=== PATIENT | female | born 1935 | race Caucasian/White ===

== ENCOUNTER 2019-01-22 21:29 | Inpatient (IN) | payer MEDICARE, OTHER ==
[~2019-01-22] VITALS: Ht 162.6 cm; Wt 56.7 kg
--- NOTE | 2019-01-22 21:40 | NUR ---
PT IS A/OX4, BIB RA909, S/P MECHANICAL FALL. PT REPORTS NO HEAD INJURY/LOC. PT STATES SHE TRIPPED ON A STEP AND FELL ONTO HER L SIDE AND IS CURRENTLY C/O L HIP PAIN. UNABLE TO ASSESS FOR SHORTENING/EXTERNAL ROTATION OF THE EXTREMITY DUE TO PT LYING R LATERAL FOR POSITION OF COMFORT. L HIP PAIN IS PROVOKED UPON MOVEMENT, SHARP IN QUALITY, RADIATES DOWN THE LLE, 10/10, CONSTANT. VSS. SKIN SIGN IS DRY AND WARM. PT DENIES C/P, SOB, N/V/D, DIZZINESS, HEADACHE.
[2019-01-22] MEDS ORDERED: MORPHINE SULFATE 2 MG/1 ML DISP.SYRIN IV ONE (22:30)
[2019-01-22] MEDS ORDERED: ONDANSETRON 4 MG/2 ML VIAL IV ONE (22:30)
[2019-01-22 22:55] LABS: BASOPHILS % (AUTO) 0.5 % (0.0-2.0); EOSINOPHILS % (AUTO) 0.7 % (0.0-7.0); HEMATOCRIT 35.2 % (31.2-41.9); HEMOGLOBIN 11.9 g/dL (10.9-14.3); LYMPHOCYTES # (AUTO) 0.8 K/uL (20.0-40.0); LYMPHOCYTES % (AUTO) 15.9 % (20.5-51.5); MEAN CORPUSCULAR HEMOGLOBIN 30.4 uug (24.7-32.8); MEAN CORPUSCULAR HGB CONC 34 g/dL (32.3-35.6); MEAN CORPUSCULAR VOLUME 90.5 fL (75.5-95.3); MONOCYTES # (AUTO) 0.4 K/uL (2.0-10.0); MONOCYTES % (AUTO) 8.2 % (0.0-11.0); NEUTROPHILS # (AUTO) 3.7 K/uL (1.8-8.9); NEUTROPHILS % (AUTO) 74.7 % (38.5-71.5); PLATELET COUNT (AUTO) 127 K/uL (179-408); RED BLOOD CELL COUNT(AUTO) 3.89 MIL/uL (3.63-4.92)
[2019-01-22 23:07] LABS: CREATININE 0.8 mg/dL (0.6-1.3); POTASSIUM 3.6 mmol/L (3.5-5.1)
[2019-01-22] MEDS ORDERED: MORPHINE SULFATE 4 MG/1 ML DISP.SYRIN ONE (23:11)
[2019-01-22 23:14] LABS: BILIRUBIN,DIRECT 0.1 mg/dL (0.0-0.2); BILIRUBIN,TOTAL 0.4 mg/dL (0.2-1.0)
[2019-01-22] MEDS ORDERED: ONDANSETRON ODT 4 MG TAB.RAPDIS ONE (23:14)
[2019-01-22] MEDS ORDERED: HYDROMORPHONE 1 MG/1 ML DISP.SYRIN ONE (23:43)
[2019-01-22] MEDS ORDERED: HYDROMORPHONE 1 MG/1 ML DISP.SYRIN IV ONE (23:45)
[2019-01-23] MEDS ORDERED: HYDROMORPHONE 1 MG/1 ML DISP.SYRIN ONE ×2 (00:42→01:18)
[2019-01-23] MEDS ORDERED: HYDROMORPHONE 1 MG/1 ML DISP.SYRIN IV ONE ×3 (01:00→03:15)
[2019-01-23] MEDS ORDERED: ONDANSETRON 4 MG/2 ML VIAL IV ONE (03:15)
[2019-01-23] MEDS ORDERED: IV NS 1000 ML 1,000 ML IV ONE (03:15)
[2019-01-23] MEDS ORDERED: ONDANSETRON 4 MG/2 ML VIAL ONE (03:25)
[2019-01-23] MEDS ORDERED: HYDROMORPHONE 2 MG/1 ML DISP.SYRIN ONE (03:25)
[2019-01-23] MEDS ORDERED: ACETAMINOPHEN 325 MG TABLET PO PRN (03:30)
[2019-01-23] MEDS ORDERED: HYDROCODONE/APAP 5-325MG TABLET PO PRN (03:30)
[2019-01-23] MEDS ORDERED: MAGNESIUM HYDROXIDE 30 ML LIQUID UDC PO PRN (03:30)
[2019-01-23] MEDS ORDERED: Z GUARD REMEDY PASTE 57 GM TUBE TOP PRN (03:30)
--- NOTE | 2019-01-23 03:52 | NUR ---
Pt. admitted to TELE 329B, under care of NAKUL ESCAMILLA. Belongs List completed
--- NOTE | 2019-01-23 04:05 | NUR ---
ADMITTING REPORT GIVEN TO JOSEP Brown RN.
--- NOTE | 2019-01-23 04:07 | NUR ---
Pt. admitted to TELE 329B, under care of NAKUL ESCAMILLA. Belongs List completed
[2019-01-23] MEDS ORDERED: ALBU0.63 (04:09)
[2019-01-23] MEDS ORDERED: HYDR-3326 (04:09)
[2019-01-23 05:34] VITALS: BP 129/59
[2019-01-23] MEDS: HYDROMORPHONE 1 MG/1 ML DISP.SYRIN IV PRN ×4 (05:59→20:34)
[2019-01-23] MEDS: IV NS 1000 ML 1,000 ML IV PRN ×2 (06:30→21:33)
--- NOTE | 2019-01-23 06:30 | NUR ---
Received patient from ER. Dx: Left Hip Fracture. no signs of acute distress noted, No complaints of SOB. Daughter is at bedside. Belongings brought with patient, daughter bringing shoes home. Inserted Higgins. IVF running on the right AC. Safety measures given. Patient was oriented to unit and room. Bed is low and locked, call light within reach. Will endorse to next shift
[2019-01-23 07:07] LABS: CARBON DIOXIDE 28 mmol/L (21-32); CHLORIDE 104 mmol/L (98-107); CHOLESTEROL 156 mg/dL (<200); CREATININE 0.8 mg/dL (0.6-1.3); GLUCOSE 148 mg/dL (74-106); HDL CHOLESTEROL 52 mg/dL (40-60); MAGNESIUM 1.7 mg/dL (1.8-2.4); PHOSPHOROUS 3.7 mg/dL (2.5-4.9); POTASSIUM 4.5 mmol/L (3.5-5.1); TRIGLYCERIDES 54 MG/DL (30-150); UREA NITROGEN, BLOOD 12 mg/dL (7-18)
[2019-01-23 08:53] LABS: *BILIRUBIN,URIN NEGATIVE (NEGATIVE); *CLARITY,URINE CLOUDY (CLEAR); *COLOR,URINE YELLOW (YELLOW); *KETONES,URINE NEGATIVE (NEGATIVE); *UROBILINOGEN,URINE 0.2 E.U./dl (NORMAL); LEUKOCYTE ESTERASE ,URINE 1+ (NEGATIVE); NITRITE, URINE POSITIVE (NEGATIVE); UGLUCOSE NEGATIVE (NEGATIVE)
[2019-01-23 08:56] LABS: *BLOOD, URINE TRACE (NEGATIVE)
[2019-01-23 09:06] LABS: RBC,URINE 0-3 /HPF (0-3)
[2019-01-23 09:07] LABS: BACTERIA,URINE MANY /HPF (NONE SEEN); SQUAMOUS EPITHELIAL CELL,UR FEW /HPF (NONE SEEN); WBC,URINE 20-50 /HPF (0-3)
[2019-01-23 12:02] VITALS: BP 135/62
[2019-01-23] MEDS: MAGNESIUM SULFATE/D5W 100 ML IV SCH ×2 (13:18→14:41)
[2019-01-23] MEDS ORDERED: ALBUTEROL SULFATE 2.5 MG/3 ML NEBU NEB PRN (15:45)
[2019-01-23 16:36] VITALS: BP 126/61
--- NOTE | 2019-01-23 18:14 | NUR ---
PATIENT SLEPT THROUGHOUT DAY. PATIENT REPORTING PAIN, PAIN MANAGEMENT PROVIDED. PATIENT SEEN BY DR SMITH AND SCHEDULED FOR SURGERY. MAGNESIUM LEVELS LOW, REPLACEMENT PROVIDED. SAFETY MEASURES PROVIDED.
[2019-01-23 20:31] VITALS: BP 124/65
[2019-01-23] MEDS: SULFAMETH/TRIMETH 800/160 MG TABLET PO SCH ×2 (20:32→20:44)
--- NOTE | 2019-01-23 20:35 | NUR ---
PATIENT AWAKE IN BED. A/O X4. PATIENT C/O PAIN IN LEFT HIP. PATIENT GIVEN DILAUDID 1MG IV PRN PER PRESS CLIPPER. VS WNL. IVF INFUSING WELL TO RIGHT AC. NEURO-VASCULAR CHECKS WNL. BED ALARM ON. CALL LIGHT IN REACH. WILL CONTINUE TO MONITOR AND ASSESS.
[2019-01-24] VITALS (8 sets, daily range): BP systolic 82–105; BP diastolic 39–57
--- NOTE | 2019-01-24 | NUR ---
PATIENT NPO ORDERED FOR SURGERY IN AM.
[2019-01-24] MEDS: HYDROMORPHONE 1 MG/1 ML DISP.SYRIN IV PRN ×3 (00:29→10:14)
[2019-01-24] MEDS: ONDANSETRON 4 MG/2 ML VIAL IV PRN ×2 (00:33→18:57)
--- NOTE | 2019-01-24 04:35 | NUR ---
PATIENT C/O PAIN. GIVEN DILAUDID 1MG IV PER RN. PATIENT REFUSED TO BE REPOSITIONED. IVF INFUSING WELL. F/C INTACT, DRAINING TO GRAVITY. NO RESP. DISTRESS NOTED. CALL LIGHT IN REACH. ALL NEEDS ATTENDED. WILL CONTINUE TO MONITOR AND ASSESS.
--- NOTE | 2019-01-24 07:30 | NUR ---
RECEIVED PATIENT SLEEPING IN BED, NO ACUTE DISTRESS NOTED. IV INTACT AND CHAPMAN DRAINING. BED IN LOWEST POSITION, SIDE RAILS UP X2, CALL LIGHT WITHIN REACH. WILL CONTINUE TO MONITOR.
[2019-01-24] MEDS: SULFAMETH/TRIMETH 800/160 MG TABLET PO SCH ×2 (09:00→21:00)
[2019-01-24] MEDS ORDERED: POLYMYXIN B SULFATE 500,000 UNITS, BACITRACIN 50,000 UNITS, NORMAL SALINE 20 ML MC ONE ×3 (10:15)
[2019-01-24] MEDS ORDERED: CLINDAMYCIN PHOSPHATE 600 MG/4 ML VIAL ONE (11:10)
[2019-01-24] MEDS ORDERED: VASOPRESSIN 20 UNIT/ML VIAL ONE ×2 (11:37→11:42)
[2019-01-24] MEDS ORDERED: SEVOFLURANE 250 ML BOTTLE ONE (11:58)
[2019-01-24] MEDS ORDERED: CEFAZOLIN 1 G VIAL IM ONE (12:42)
[2019-01-24] MEDS ORDERED: IV NORMAL SALINE 1000 ML BAG IV ONE ×2 (12:42)
[2019-01-24] MEDS ORDERED: ONDANSETRON 4 MG/2 ML VIAL IV ONE (12:42)
[2019-01-24] MEDS ORDERED: DEXAMETHASONE SOD PHOSPHATE 4 MG INJ IV ONE (12:42)
[2019-01-24] MEDS ORDERED: POTASSIUM CHLORIDE 20 MEQ in IV D5 1/2 NS 1000 ML 1,000 ML IV PRN (13:15)
[2019-01-24] MEDS ORDERED: FENTANYL CITRATE 100 MCG/2 ML AMPUL ONE (13:26)
[2019-01-24] MEDS ORDERED: ONDANSETRON 4 MG/2 ML VIAL ONE (13:27)
[2019-01-24] MEDS: MORPHINE SULFATE 4 MG/1 ML DISP.SYRIN IV PRN ×4 (14:12→22:02)
--- NOTE | 2019-01-24 18:49 | NUR ---
PATIENT SLEPT THROUGHOUT DAY. PATIENT WENT FOR SURGERY WITH DR. SMITH FOR A LEFT HIP NAILING. NO ACUTE DISTRESS NOTED. PATIENT REPORTING PAIN, PAIN MANAGEMENT PROVIDED. SAFETY MEASURES PROVIDED.
--- NOTE | 2019-01-24 20:00 | NUR ---
pt resting comfortably in bed with family at bedside. pt is a/o x 3, has no complaints at this time. Will continue to monitor.
[2019-01-24] MEDS: CLINDAMYCIN PHOSPHATE IV 900 MG in IV DEXTROSE 5% 100 ML IV SCH (20:37)
--- NOTE | 2019-01-25 | NUR ---
pt resting comfortably, call light within reach. Will continue to monitor.
[2019-01-25] MEDS: MORPHINE SULFATE 4 MG/1 ML DISP.SYRIN IV PRN ×6 (02:32→18:25)
[2019-01-25] MEDS: CLINDAMYCIN PHOSPHATE IV 900 MG in IV DEXTROSE 5% 100 ML IV SCH ×3 (04:00→20:59)
[2019-01-25 04:49] VITALS: BP 96/60
[2019-01-25 06:16] LABS: BASOPHILS % (AUTO) 0.5 % (0.0-2.0); EOSINOPHILS % (AUTO) 0.3 % (0.0-7.0); HEMATOCRIT 30.6 % (31.2-41.9); HEMOGLOBIN 10.2 g/dL (10.9-14.3); LYMPHOCYTES # (AUTO) 0.6 K/uL (20.0-40.0); LYMPHOCYTES % (AUTO) 7.8 % (20.5-51.5); MEAN CORPUSCULAR HEMOGLOBIN 31.3 uug (24.7-32.8); MEAN CORPUSCULAR HGB CONC 33 g/dL (32.3-35.6); MEAN CORPUSCULAR VOLUME 93.7 fL (75.5-95.3); MONOCYTES % (AUTO) 12.4 % (0.0-11.0); NEUTROPHILS # (AUTO) 6.3 K/uL (1.8-8.9); PLATELET COUNT (AUTO) 77 K/uL (179-408); RED BLOOD CELL COUNT(AUTO) 3.27 MIL/uL (3.63-4.92); WHITE BLOOD COUNT (AUTO) 7.9 K/uL (3.8-11.8)
[2019-01-25 06:34] LABS: CREATININE 0.9 mg/dL (0.6-1.3); MAGNESIUM 1.9 mg/dL (1.8-2.4); PHOSPHOROUS 3.2 mg/dL (2.5-4.9); POTASSIUM 5.3 mmol/L (3.5-5.1)
--- NOTE | 2019-01-25 06:48 | NUR ---
Pt resting, Bed in locked position. Pt pain was managed throughout shift. Will endorse to day shift.
--- NOTE | 2019-01-25 07:25 | NUR ---
RECEIVED PATIENT SLEEPING IN BED. NO ACUTE DISTRESS NOTED. BED IN LOWEST POSITION, SIDE RAILS UP X2, CALL LIGHT WITHIN REACH. WILL CONTINUE TO MONITOR.
[2019-01-25] MEDS: SULFAMETH/TRIMETH 800/160 MG TABLET PO SCH ×2 (08:00→20:59)
[2019-01-25] MEDS ORDERED: IV D5 1/2 NS 1000 ML 1,000 ML IV PRN (10:15)
[2019-01-25 10:57] LABS: EOSINOPHILS % (MANUAL) 1 % (0-8); LYMPHOCYTES % (MANUAL) 8 % (20-40); MONOCYTES % (MANUAL) 8 % (2-10); NEUTROPHILS % (MANUAL) 83 % (42-75)
[2019-01-25 12:11] VITALS: BP 105/57
[2019-01-25 16:14] VITALS: BP 101/53
[2019-01-25] MEDS: ONDANSETRON 4 MG/2 ML VIAL IV PRN (18:30)
--- NOTE | 2019-01-25 18:59 | NUR ---
PATIENT SLEPT THROUGHOUT DAY. NO DISTRESS NOTED THROUGHOUT SHIFT. NO ACUTE DISTRESS NOTED. PAIN MANAGEMENT PROVIDED. LEFT HIP DRESSING REINFORCED. SAFETY MEASURES PROVIDED.
[2019-01-25 20:24] VITALS: BP 111/60
--- NOTE | 2019-01-26 01:14 | NUR ---
Received report from Colton GOMES, for continuity of care. Received patient resting comfortably on bed, no signs of acute distress noted. No s/s of pain or SOB. IVF running on the left hand, no s/s of infiltration or infection. Safety measures initiated. Bed is low and locked, call light within reach. Will continue to monitor.
[2019-01-26] MEDS: MORPHINE SULFATE 4 MG/1 ML DISP.SYRIN IV PRN ×9 (02:39→23:14)
[2019-01-26] MEDS: CLINDAMYCIN PHOSPHATE IV 900 MG in IV DEXTROSE 5% 100 ML IV SCH ×2 (03:53→14:13)
[2019-01-26 06:23] VITALS: BP 115/62
[2019-01-26 06:50] LABS: CREATININE 0.9 mg/dL (0.6-1.3); MAGNESIUM 1.6 mg/dL (1.8-2.4); POTASSIUM 4.2 mmol/L (3.5-5.1)
[2019-01-26 07:11] LABS: EOSINOPHILS # (AUTO) 0.3 K/uL (0.0-0.7); HEMOGLOBIN 9.2 g/dL (10.9-14.3); LYMPHOCYTES # (AUTO) 0.7 K/uL (20.0-40.0)
[2019-01-26 07:23] LABS: BASOPHILS % (AUTO) 0.7 % (0.0-2.0); EOSINOPHILS % (AUTO) 5.2 % (0.0-7.0); HEMATOCRIT 27.6 % (31.2-41.9); LYMPHOCYTES % (AUTO) 11.6 % (20.5-51.5); MEAN CORPUSCULAR HEMOGLOBIN 31.2 uug (24.7-32.8); MEAN CORPUSCULAR HGB CONC 34 g/dL (32.3-35.6); MEAN CORPUSCULAR VOLUME 93.2 fL (75.5-95.3); MONOCYTES # (AUTO) 0.8 K/uL (2.0-10.0); NEUTROPHILS % (AUTO) 68.5 % (38.5-71.5); PLATELET COUNT (AUTO) 72 K/uL (179-408); RED BLOOD CELL COUNT(AUTO) 2.96 MIL/uL (3.63-4.92)
[2019-01-26 07:24] LABS: WHITE BLOOD COUNT (AUTO) 5.9 K/uL (3.8-11.8)
--- NOTE | 2019-01-26 08:00 | NUR ---
Received patient awake in bed. AAox4. Complaining of left hip pain; will medicate appropriately. No SOB noted. IV on left hand intact and patent with IVF running at 75cc/hr. Higgins in place and dwelling well. Safety measures implemented. Call light within reach. Will continue to monitor.
[2019-01-26] MEDS: SULFAMETH/TRIMETH 800/160 MG TABLET PO SCH ×2 (08:45→21:14)
[2019-01-26 08:46] LABS: EOSINOPHILS % (MANUAL) 7 % (0-8); LYMPHOCYTES % (MANUAL) 10 % (20-40); MONOCYTES % (MANUAL) 17 % (2-10); MYELOCYTES % 1 % (0-0); NEUTROPHILS % (MANUAL) 65 % (42-75)
[2019-01-26] MEDS: MAGNESIUM SULFATE/D5W 100 ML IV SCH ×2 (09:48→11:30)
[2019-01-26 11:50] VITALS: BP 107/58
[2019-01-26 15:54] VITALS: BP 106/61
[2019-01-26] MEDS: HYDROCODONE/APAP 10-325 MG TABLET PO PRN (17:58)
[2019-01-26 18:15] VITALS: BP 159/78
--- NOTE | 2019-01-26 19:30 | NUR ---
Patient complaining of left hip pain of 8/10; patient medicated appropriately throughout shift. In no acute distress at this time. Will endorse care accordingly.
[2019-01-26 20:05] VITALS: BP 108/57
--- NOTE | 2019-01-26 22:30 | NUR ---
bladder is distended, scanner shows 500 ml. Explained to the patient to urinate in the diaper.
--- NOTE | 2019-01-26 23:00 | NUR ---
Patient urinated in the diaper, bladder scanner shows 300 ml. Patient is mildly confused.
[2019-01-27] MEDS: MORPHINE SULFATE 4 MG/1 ML DISP.SYRIN IV PRN ×3 (01:57→09:18)
[2019-01-27 06:00] VITALS: BP 115/69
[2019-01-27 07:28] LABS: BASOPHILS % (AUTO) 0.9 % (0.0-2.0); EOSINOPHILS # (AUTO) 0.2 K/uL (0.0-0.7); EOSINOPHILS % (AUTO) 5.1 % (0.0-7.0); HEMOGLOBIN 8.8 g/dL (10.9-14.3); LYMPHOCYTES # (AUTO) 0.4 K/uL (20.0-40.0); LYMPHOCYTES % (AUTO) 10.6 % (20.5-51.5); MEAN CORPUSCULAR HGB CONC 34 g/dL (32.3-35.6); MONOCYTES # (AUTO) 0.6 K/uL (2.0-10.0); MONOCYTES % (AUTO) 14.5 % (0.0-11.0); NEUTROPHILS # (AUTO) 2.7 K/uL (1.8-8.9); NEUTROPHILS % (AUTO) 68.9 % (38.5-71.5); PLATELET COUNT (AUTO) 69 K/uL (179-408); RED BLOOD CELL COUNT(AUTO) 2.83 MIL/uL (3.63-4.92)
[2019-01-27 07:34] LABS: CARBON DIOXIDE 29 mmol/L (21-32); CHLORIDE 104 mmol/L (98-107); CREATININE 0.7 mg/dL (0.6-1.3); GLUCOSE 118 mg/dL (74-106); MAGNESIUM 1.8 mg/dL (1.8-2.4); PHOSPHOROUS 3.3 mg/dL (2.5-4.9); POTASSIUM 4.2 mmol/L (3.5-5.1); UREA NITROGEN, BLOOD 14 mg/dL (7-18)
[2019-01-27] MEDS: SULFAMETH/TRIMETH 800/160 MG TABLET PO SCH (09:18)
[2019-01-27 09:25] LABS: EOSINOPHILS % (MANUAL) 7 % (0-8); LYMPHOCYTES % (MANUAL) 8 % (20-40); MONOCYTES % (MANUAL) 15 % (2-10); NEUTROPHILS % (MANUAL) 70 % (42-75)
[2019-01-27 11:46] VITALS: BP 119/59
[2019-01-27] MEDS ORDERED: ALBU8.5H8 INH (12:13)
[2019-01-27] MEDS ORDERED: HYDR-3980 PO (13:05)
[2019-01-27] MEDS ORDERED: SULF1TAB3 PO (13:05)
[2019-01-27] MEDS: HYDROCODONE/APAP 10-325 MG TABLET PO PRN ×2 (15:27→19:31)
[2019-01-27 16:00] VITALS: BP 101/59
--- NOTE | 2019-01-27 18:31 | NUR ---
Patient has discharged orders to ARU. Patient compliant with care and medication throughout shift. Tolerated PT/OT. Vital signs and labs trending towards normal limits. Will endorse to oncoming shift.
--- NOTE | 2019-01-27 20:00 | NUR ---
patient received lying in bed with daughter at bedside. v/s stable and no signs of acute distress. safety and comfort measures provided. patient transferred down to ARU. AM nurse completed discharge paperwork and provided report. IV line discontinued. Transferred to ARU.
== END 2019-01-27 20:05 | DRG 481 ==
LOC: ER 21:31 → UNDOADMIN 01-23 04:14 → MEDSURG3 01-23 04:14 → TELE3 01-23 04:15 → MEDSURG3 01-23 09:00
PROVIDERS: ADMIT Nurse Practitioner Acute Care; ATTEND Registered Nurse
PROC: 0QS706Z Reposition Left Upper Femur with Intramedullary Internal Fixation Device, Open Approach (ICD-10-PCS; principal; 2019-01-24)
DX: S72.145A Nondisplaced intertrochanteric fracture of left femur, initial encounter for closed fracture (principal); N39.0 Urinary tract infection, site not specified; W01.0XXA Fall on same level from slipping, tripping and stumbling without subsequent striking against object, initial encounter; Y92.89 Other specified places as the place of occurrence of the external cause; G89.29 Other chronic pain; E83.42 Hypomagnesemia; E86.0 Dehydration; Z96.653 Presence of artificial knee joint, bilateral; I45.10 Unspecified right bundle-branch block; B96.1 Klebsiella pneumoniae [K. pneumoniae] as the cause of diseases classified elsewhere; E87.5 Hyperkalemia; I27.20 Pulmonary hypertension, unspecified; M79.7 Fibromyalgia; J45.909 Unspecified asthma, uncomplicated; H26.9 Unspecified cataract; M95.4 Acquired deformity of chest and rib; K57.30 Diverticulosis of large intestine without perforation or abscess without bleeding; M16.0 Bilateral primary osteoarthritis of hip; M85.80 Other specified disorders of bone density and structure, unspecified site; D69.6 Thrombocytopenia, unspecified; D64.9 Anemia, unspecified
CPT/HCPCS: 36415; 70030-TC; 71045; 72192; 73502; 73503; 73551; 83735; 84100; 84443; 85025; 85730; 87077; 87086; 93005; 93307; A4649; A4663; C1769; G0378; J0690; J1100; J1170; J2270; J2405; J3010; J3475; J3480; J3490; J3535; J7030; J7060; Q0162

== ENCOUNTER 2019-01-27 20:16 | Inpatient (IN) | payer MEDICARE, OTHER ==
[~2019-01-27] VITALS: Ht 162.6 cm; Wt 56.7 kg
[~2019-01-27 20:16] MED LIST: ALBU0.63; ALBU8.5H8 INH; HYDR-3326; HYDR-3980 PO; SULF1TAB3 PO
[2019-01-27 20:50] VITALS: BP 118/49
--- NOTE | 2019-01-27 23:29 | NUR ---
Admitted 83-year-old patient from Med Surg. Patient arrived in the unit at 1950 via stretcher. AAO x3, sometimes forgetful. Not in acute distress or SOB. On air mattress. Able to make needs known. On O2 2 L via NC. No complain of pain at the time of admission. Her daughter at the bedside. Admitting diagnosis: S/P left hip ORIF. Condition fair. VS: T: 98.5, HR:86, RR: 18, O2 sat: 99%, BP: 118/49. Physical assessment done. All admission work finished. Dr. Sim was aware of admission. MRSA swap taken and sent to the lab. Skin assessed and pictures taken and put in the chart. Surgical dressing was changed. Belonging list done. All needs attended promptly. Fall prevention observed. Safety measures maintained. Bed in low and lock position, alarm on, side rails up x2 for safety. Patient educated to use call light. Call light and frequently used items within reach. Continue to monitor.
[2019-01-27] MEDS: HYDROCODONE/APAP 10-325 MG TABLET PO PRN (23:57)
[2019-01-28] MEDS: HYDROCODONE/APAP 10-325 MG TABLET PO PRN ×3 (04:43→21:05)
[2019-01-28 04:55] VITALS: BP 112/64
--- NOTE | 2019-01-28 07:46 | NUR ---
PATIENT IS IN SLEEP, NO DISTRESS NOTED
[2019-01-28 08:03] VITALS: BP 125/64
[2019-01-28] MEDS: HYDROCODONE/APAP 5-325MG TABLET PO PRN ×2 (09:23→16:55)
[2019-01-28 10:04] LABS: BASOPHILS % (AUTO) 0.9 % (0.0-2.0); EOSINOPHILS # (AUTO) 0.2 K/uL (0.0-0.7); EOSINOPHILS % (AUTO) 4.4 % (0.0-7.0); HEMATOCRIT 28.1 % (31.2-41.9); HEMOGLOBIN 9.5 g/dL (10.9-14.3); LYMPHOCYTES # (AUTO) 0.5 K/uL (20.0-40.0); LYMPHOCYTES % (AUTO) 10.3 % (20.5-51.5); MEAN CORPUSCULAR HGB CONC 34 g/dL (32.3-35.6); MEAN CORPUSCULAR VOLUME 91.5 fL (75.5-95.3); MONOCYTES # (AUTO) 0.6 K/uL (2.0-10.0); MONOCYTES % (AUTO) 12.1 % (0.0-11.0); NEUTROPHILS # (AUTO) 3.4 K/uL (1.8-8.9); NEUTROPHILS % (AUTO) 72.3 % (38.5-71.5); PLATELET COUNT (AUTO) 96 K/uL (179-408); RED BLOOD CELL COUNT(AUTO) 3.07 MIL/uL (3.63-4.92); WHITE BLOOD COUNT (AUTO) 4.7 K/uL (3.8-11.8)
[2019-01-28] MEDS: SULFAMETH/TRIMETH 800/160 MG TABLET PO SCH ×2 (11:03→21:04)
--- NOTE | 2019-01-28 13:36 | NUR ---
PATIENT AND PATIENT'S DAUGHTER REQUESTED REGULAR DIET. CHANGED DIET TO REGULAR DIET, ORDERED. Addendum: 01/28/19 at 1500 by ANTONIO SPRINGER RN, RN DIET ORDER IS APPROVED WITH NAKUL FAY.
--- NOTE | 2019-01-28 14:21 | NUR ---
PATIENT REFUSED FLU VACCINE, HYPERSENSITIVE TO EGGS.
[2019-01-28 15:55] VITALS: BP 122/63
[2019-01-28 16:03] VITALS: BP 122/63
--- NOTE | 2019-01-28 18:38 | NUR ---
patient is alert, oriented x3, no sob, resp even nonlabored,skin warm and dry to touch, continue on 2liter o2, saturating at 95%, no distress noted, incision site is clean and dry, baltazar are intact. repositioned every 2 hours, kept clean and dry, SCD pumps are in place, noted with redness to perineal area, cleaned with water and soap, continue to monitor
[2019-01-28] MEDS ORDERED: ONDANSETRON ODT 4 MG TAB.RAPDIS SL PRN (19:45)
[2019-01-28 19:46] VITALS: BP 124/64
[2019-01-28] MEDS ORDERED: ALBUTEROL SULFATE 8 GM HFA.AER.AD INH SCH (21:00)
[2019-01-28] MEDS ORDERED: ALBUTEROL SULFATE 2.5 MG/3 ML NEBU NEB SCH (21:00)
[2019-01-28] MEDS: ENOXAPARIN SODIUM 40 MG/0.4 ML DISP.SYRIN SQ SCH (21:45)
--- NOTE | 2019-01-28 22:11 | NUR ---
SPOKE TO ABOUT CLARIFING ORDER FOR LOVENOX, STATES HE .. DOES WANT IT TO BE GIVEN EVEN THO PLATELETS ARE 96, LET PHARMACY KNOW.
--- NOTE | 2019-01-28 22:32 | NUR ---
ATTEMPTED TO EXPLAIN RISKS OF NOT TAKING BLOOD THINNER / STATES WILL TALK TO , IN THE AM
[2019-01-29] MEDS: HYDROCODONE/APAP 10-325 MG TABLET PO PRN ×6 (01:09→22:32)
[2019-01-29 04:40] VITALS: BP 137/68
[2019-01-29 07:51] VITALS: BP 116/71
[2019-01-29] MEDS: SULFAMETH/TRIMETH 800/160 MG TABLET PO SCH ×2 (10:19→20:13)
[2019-01-29 14:55] LABS: BASOPHILS % (AUTO) 0.7 % (0.0-2.0); EOSINOPHILS # (AUTO) 0.2 K/uL (0.0-0.7); EOSINOPHILS % (AUTO) 3.5 % (0.0-7.0); HEMATOCRIT 26.2 % (31.2-41.9); HEMOGLOBIN 8.8 g/dL (10.9-14.3); LYMPHOCYTES # (AUTO) 0.6 K/uL (20.0-40.0); LYMPHOCYTES % (AUTO) 10.5 % (20.5-51.5); MEAN CORPUSCULAR HGB CONC 34 g/dL (32.3-35.6); MEAN CORPUSCULAR VOLUME 89.1 fL (75.5-95.3); MONOCYTES # (AUTO) 0.8 K/uL (2.0-10.0); MONOCYTES % (AUTO) 13.1 % (0.0-11.0); NEUTROPHILS # (AUTO) 4.4 K/uL (1.8-8.9); NEUTROPHILS % (AUTO) 72.2 % (38.5-71.5); PLATELET COUNT (AUTO) 131 K/uL (179-408); RED BLOOD CELL COUNT(AUTO) 2.94 MIL/uL (3.63-4.92); WHITE BLOOD COUNT (AUTO) 6.2 K/uL (3.8-11.8)
[2019-01-29 16:00] VITALS: BP 100/65
--- NOTE | 2019-01-29 17:56 | NUR ---
SBAR report received this morning from [facility] nurse. Pt received sitting up in wheelchair. Pt assessed, AAOx3-4, c/o of pain 10/10 reported, pain medication administered per PRN orders. Allergies updated to include; All nuts and sea food, including fish. Pt able to make needs known. Pt compliant with medications, refusing Lovenox 40mg, requesting to speak with MD following Pt teaching. Pt seen by MD, agreed to take medication as ordered at next dose. VSS. Pt cooperative with therapies as offered. Sx incision is well approximated, with baltazar intact and no s/s of infection. All safety and comfort needs met. Daughter visiting at bedside. SCD pumps in place. Bed in locked and lowest position with side rails up x2, air mattress, bed alarm on, personal items and call light placed within reach. Will continue to monitor.
[2019-01-29 19:50] VITALS: BP 126/66
[2019-01-29] MEDS: ENOXAPARIN SODIUM 40 MG/0.4 ML DISP.SYRIN SQ SCH (20:28)
--- NOTE | 2019-01-29 21:45 | NUR ---
No change in Pt status. Pt able to make needs known. Pt compliant with routine medications including Lovenox 40mg. Pt teaching provided. Pain 11/15 to Sx site reported. PRN pain medication administered as ordered. Call light and belongings placed within reach. Pt clean and dry. VSS. All comfort needs attended to. Will continue to monitor for safety.
[2019-01-30] MEDS: HYDROCODONE/APAP 10-325 MG TABLET PO PRN ×4 (02:40→20:37)
[2019-01-30 05:30] VITALS: BP 136/62
[2019-01-30] MEDS ORDERED: HYDROCODONE/APAP 10-325 MG TABLET ONE (05:37)
[2019-01-30 07:53] VITALS: BP_SYST 129; BP_DIAS 62; BP_DIAS 67
[2019-01-30] MEDS: SULFAMETH/TRIMETH 800/160 MG TABLET PO SCH (09:17)
[2019-01-30] MEDS: HYDROCODONE/APAP 5-325MG TABLET PO PRN (10:29)
--- NOTE | 2019-01-30 10:34 | NUR ---
patient requested pain medication norco 5/325 for pain 10/15. administered and continue to monitor.
--- NOTE | 2019-01-30 15:04 | NUR ---
INTERDISCIPLINARY TEAM CONFERENCE
--- NOTE | 2019-01-30 15:17 | NUR ---
INDIVIDUALIZE PLAN OF CARE
[2019-01-30 16:42] VITALS: BP 135/67
[2019-01-30] MEDS: ENOXAPARIN SODIUM 40 MG/0.4 ML DISP.SYRIN SQ SCH (20:38)
[2019-01-30 21:43] VITALS: BP 142/60
[2019-01-31] MEDS: HYDROCODONE/APAP 10-325 MG TABLET PO PRN ×6 (00:43→21:49)
[2019-01-31 05:15] VITALS: BP 144/57
--- NOTE | 2019-01-31 05:33 | NUR ---
awake alert and oriented. needs attended. On pain management. Medicated with [place] 10/325 1 tab given q4 hrs as needed. No acute distress noted. kept comfortable. voiding freely. will monitor patient. siderails up for safety.VSS.
[2019-01-31 07:54] VITALS: BP 128/70
[2019-01-31] MEDS: Z GUARD REMEDY PASTE 57 GM TUBE TOP PRN (14:47)
[2019-01-31 15:43] VITALS: BP 117/55
--- NOTE | 2019-01-31 17:58 | NUR ---
Patient has complaint of pain in her left hip. She says it has reached a 9 out of 10 at this time. She is visiting with a family member at bedside. The patient had a complete bed bath, physical therapy, and another partial change after dinner. The patient breathing is even and unlabored. She is not in any apparent other distress minus the pain she says she is feeling in her lower extremity. Will endorse to patient oncoming team registered nurse. Ralph Henderson RN
[2019-01-31 20:41] VITALS: BP 120/57
[2019-01-31] MEDS: ENOXAPARIN SODIUM 40 MG/0.4 ML DISP.SYRIN SQ SCH (20:47)
[2019-02-01] MEDS: HYDROCODONE/APAP 10-325 MG TABLET PO PRN ×4 (01:49→17:54)
[2019-02-01 05:23] VITALS: BP 114/69
--- NOTE | 2019-02-01 06:41 | NUR ---
Received patient in bed. AAO x3, sometimes forgetful. Not in acute distress or SOB. On air mattress. Able to make needs known. On room air. Complained of pain on her left hip, rated pain 8/10 in numeric scale. [place] 10-325 mg given every 4 hours and effective. Pain assessed and reassessed after pain medication. All due medication given and well tolerated. Physical assessment done. All needs attended promptly. Fall prevention observed. Safety measures maintained. Bed in low and lock position, alarm on, side rails up x2 for safety. Patient educated to use call light. Call light and frequently used items within reach. Continue to monitor and will endorse to the oncoming nurse accordingly.
[2019-02-01 07:39] LABS: BASOPHILS % (AUTO) 0.9 % (0.0-2.0); EOSINOPHILS # (AUTO) 0.3 K/uL (0.0-0.7); EOSINOPHILS % (AUTO) 5.4 % (0.0-7.0); HEMATOCRIT 29.1 % (31.2-41.9); HEMOGLOBIN 9.9 g/dL (10.9-14.3); LYMPHOCYTES % (AUTO) 18.7 % (20.5-51.5); MEAN CORPUSCULAR HEMOGLOBIN 30.7 uug (24.7-32.8); MEAN CORPUSCULAR HGB CONC 34 g/dL (32.3-35.6); MEAN CORPUSCULAR VOLUME 90.6 fL (75.5-95.3); MONOCYTES # (AUTO) 0.6 K/uL (2.0-10.0); MONOCYTES % (AUTO) 11.9 % (0.0-11.0); NEUTROPHILS # (AUTO) 3.3 K/uL (1.8-8.9); NEUTROPHILS % (AUTO) 63.1 % (38.5-71.5); PLATELET COUNT (AUTO) 201 K/uL (179-408); RED BLOOD CELL COUNT(AUTO) 3.22 MIL/uL (3.63-4.92); WHITE BLOOD COUNT (AUTO) 5.2 K/uL (3.8-11.8)
[2019-02-01 08:00] VITALS: BP 122/67
[2019-02-01] MEDS ORDERED: OXYCODONE HCL 10 MG TAB.SR.12H PO SCH (12:00)
[2019-02-01] MEDS ORDERED: HYDROCORTISONE 1% CREAM 30 GM TUBE TP PRN (13:30)
[2019-02-01] MEDS: OXYCODONE HCL 10 MG TAB.SR.12H PO SCH ×2 (14:41→22:14)
[2019-02-01 16:48] VITALS: BP 113/58
--- NOTE | 2019-02-01 18:33 | NUR ---
PATIENT IS ALERT, ORIENTED X4, VERBALLY RESPONSIVE, NO SOB, RESP EVEN NONLABORED,SKIN WARM AND DRY TO TOUCH, PATIENT REQUESTED LONG ACTING PAIN MEDICATION TO BETTER MANAGE THE PAIN, DR BALES ORDERED OXYCONTIN 10MG EVERY 8 HOURS, CONTINUE TO MONITOR FOR PAIN MANAGEMENT. ALL NEEDS ATTENDED TIMELY.
--- NOTE | 2019-02-01 19:50 | NUR ---
Awake, in bed, reading book at this time. HOB elevated. No complaint presented. Safety measures and fall precaution maintained. Continue care as planned.
[2019-02-01] MEDS: ENOXAPARIN SODIUM 40 MG/0.4 ML DISP.SYRIN SQ SCH (20:29)
[2019-02-01 21:04] VITALS: BP 123/51
[2019-02-02] MEDS: HYDROCODONE/APAP 10-325 MG TABLET PO PRN ×5 (01:02→17:12)
--- NOTE | 2019-02-02 01:05 | NUR ---
Complaint of left hip pain after diaoer changed and turned from side to side. Medicated with [place] as ordered and needed. Will monitor.
[2019-02-02 04:37] VITALS: BP 133/62
[2019-02-02] MEDS: OXYCODONE HCL 10 MG TAB.SR.12H PO SCH ×3 (06:19→21:21)
--- NOTE | 2019-02-02 06:53 | NUR ---
Shift End Report: VS stable. Medicated twice with [place] with relief. No further complaint presented. Slept in between care. No significant event reported all night. All needs attended and met. Continue current rehab plan of care.
[2019-02-02 08:02] VITALS: BP 113/69
[2019-02-02 17:14] VITALS: BP 104/59
--- NOTE | 2019-02-02 19:50 | NUR ---
Reading book during initial rounds. Denies any pain/discomforts at this time. Continue care as planned.
[2019-02-02] MEDS: ENOXAPARIN SODIUM 40 MG/0.4 ML DISP.SYRIN SQ SCH (20:35)
[2019-02-02 21:10] VITALS: BP 107/63
[2019-02-03] MEDS: HYDROCODONE/APAP 10-325 MG TABLET PO PRN ×3 (01:22→18:54)
--- NOTE | 2019-02-03 05:46 | NUR ---
Shift End Report: Slept in between care. Medicated for pain as needed with help. All needs anticipated and attended. No significant event reported all night. Continue current rehab plan of care.
[2019-02-03] MEDS: OXYCODONE HCL 10 MG TAB.SR.12H PO SCH ×3 (05:49→21:52)
[2019-02-03 05:58] VITALS: BP 148/64
[2019-02-03 07:40] VITALS: BP 116/66
--- NOTE | 2019-02-03 08:45 | NUR ---
Patient in bed, awake, alert oriented x 3 not in any form of distress. Due medication administered. Patient complained of pain on the left hip and given PRN pain medication as ordered and tolerated well. Needs attended to promptly. Call light and frequently used items placed within reach.
[2019-02-03 16:26] VITALS: BP 116/62
--- NOTE | 2019-02-03 19:45 | NUR ---
Awake, in bed, reading book during initial rounds. Very pleasant and calm, denies pain at this time. Continue care as planned.
--- NOTE | 2019-02-03 20:25 | NUR ---
Xray on the left hip done as ordered. tolerated procedure well.
[2019-02-03 20:42] VITALS: BP 113/54
[2019-02-03] MEDS: ENOXAPARIN SODIUM 40 MG/0.4 ML DISP.SYRIN SQ SCH (20:45)
[2019-02-04 04:55] VITALS: BP 133/66
[2019-02-04] MEDS: HYDROCODONE/APAP 10-325 MG TABLET PO PRN ×3 (04:57→17:42)
[2019-02-04] MEDS: OXYCODONE HCL 10 MG TAB.SR.12H PO SCH ×4 (06:20→21:29)
--- NOTE | 2019-02-04 06:47 | NUR ---
Shift End Report: Slept well. Medicated once with [place] with good relief. No further complaint presented. All needs attended and met. No significant event reported all night. Continue current rehab plan of care. VS stable.
[2019-02-04 07:51] VITALS: BP 96/62
[2019-02-04 15:50] VITALS: BP 122/54
[2019-02-04 16:33] VITALS: BP 115/59
[2019-02-04 20:06] VITALS: BP 120/64
[2019-02-04] MEDS: ENOXAPARIN SODIUM 40 MG/0.4 ML DISP.SYRIN SQ SCH (21:32)
[2019-02-05] MEDS: HYDROCODONE/APAP 10-325 MG TABLET PO PRN ×4 (00:27→23:48)
--- NOTE | 2019-02-05 04:38 | NUR ---
aaox4 compliant with meds. VSS no acute distress noted. Incontinent of bowel and bladder. No BM noted this shift. Will monitor patient. Pain meds given as needed with relief obtained. Kept comfortable. Fall precautions maintained.
[2019-02-05] MEDS: OXYCODONE HCL 10 MG TAB.SR.12H PO SCH ×3 (05:35→21:17)
[2019-02-05 05:54] VITALS: BP 111/67
[2019-02-05 08:15] VITALS: BP 117/56
[2019-02-05] MEDS: Z GUARD REMEDY PASTE 57 GM TUBE TOP PRN (08:32)
[2019-02-05 13:19] LABS: *BILIRUBIN,URIN 1+ (NEGATIVE); *BLOOD, URINE NEGATIVE (NEGATIVE); *CLARITY,URINE CLEAR (CLEAR); *COLOR,URINE YELLOW (YELLOW); *KETONES,URINE TRACE (NEGATIVE); *UROBILINOGEN,URINE 0.2 E.U./dl (NORMAL); LEUKOCYTE ESTERASE ,URINE 2+ (NEGATIVE); NITRITE, URINE NEGATIVE (NEGATIVE); PH,URINE 5.5 (5.0-8.0); UGLUCOSE NEGATIVE (NEGATIVE)
[2019-02-05 13:34] LABS: BACTERIA,URINE FEW /HPF (NONE SEEN); RBC,URINE 0-3 /HPF (0-3); SQUAMOUS EPITHELIAL CELL,UR FEW /HPF (NONE SEEN)
--- NOTE | 2019-02-05 17:54 | NUR ---
PATIENT ALERT, ORIENTED X4, NO SOB, RESP EVEN NONLABORED,SKIN WARM AND DRY TO TOUCH, NO DISTRESS NOTED, PATIENT COMPLAINED HAVING DYSURIA, NOTIFIED MD REYNAGA, UA CULTURE PENDING, PER MD WAIT FOR CULTURE, TEACHING DONE TO PATIENT TO INCREASE PO FLUIDS TOLERATED, PATIENT VERBALIZED UNDERSTANDING IT, HOWEVER NO HEMATURIA NOTED. GOOD PERICARE PROVIDED.
[2019-02-05 18:08] VITALS: BP 125/70
[2019-02-05 19:48] VITALS: BP 109/64
--- NOTE | 2019-02-05 20:09 | NUR ---
aaox4 resting in bed upon initial rounds. VSS. needs attended. incontinent of bowel and bladder. No BM this shift. on pain management. patient on oxycontin 10 mg as scheduled. tolerated po meds well. no acute distress noted.
[2019-02-05] MEDS: ENOXAPARIN SODIUM 40 MG/0.4 ML DISP.SYRIN SQ SCH (21:20)
[2019-02-06] MEDS: HYDROCODONE/APAP 10-325 MG TABLET PO PRN ×2 (03:47→10:49)
[2019-02-06 05:46] VITALS: BP 104/56
[2019-02-06] MEDS: OXYCODONE HCL 10 MG TAB.SR.12H PO SCH ×3 (06:04→21:36)
--- NOTE | 2019-02-06 06:44 | NUR ---
sleeping at short intervals. aaox4 on pain management, medicated with oxycontin 10 mg as scheduled. No caute distress noted. will monitor patient. siderails up for safety. Incontinent of urine x3 kept clean and dry. No BM noted this shift. will monitor patient.
[2019-02-06 08:00] VITALS: BP 111/50
--- NOTE | 2019-02-06 10:00 | NUR ---
Patient is A&O x 4. No SOB noted. No complains of pain at this time. Vital signs taken and stable for patient. Due medications administered as ordered and scheduled. Left hip surgical incision intact and dry; open to air. No s/sx of infection noted. needs attended, safety measures in place, call light left at bed side and will continue with care.
--- NOTE | 2019-02-06 13:44 | NUR ---
INTERDISCIPLINARY TEAM CONFERENCE
--- NOTE | 2019-02-06 15:00 | NUR ---
Patient started on Bactrim DS for UTI, administered first dose and tolerated well.
[2019-02-06] MEDS: SULFAMETH/TRIMETH 800/160 MG TABLET PO SCH ×2 (15:15→21:35)
[2019-02-06 18:00] VITALS: BP 112/50
[2019-02-06] MEDS: HYDROCODONE/APAP 5-325MG TABLET PO PRN (18:47)
--- NOTE | 2019-02-06 19:16 | NUR ---
Vital signs taken and stable for patient. [place] 5/325mg 1 tab PO administered for pain 10/15 and effective. Patient assisted with ADLs, BPR with a walker and 1 person assist. Safety measures in place, needs attended, call light left at bed side, endorsed to next shift and will continue with care.
[2019-02-06 19:58] VITALS: BP 121/55
[2019-02-06] MEDS: ENOXAPARIN SODIUM 40 MG/0.4 ML DISP.SYRIN SQ SCH (21:35)
--- NOTE | 2019-02-06 22:06 | NUR ---
Received pt resting in bed and reading a book. AAO x4. No acute distress noted. C/o 10/15 pain on the left hip. Scheduled pain med and other due meds given as ordered. Assisted to the bathroom using walker, voided x1. Safety measures maintained. Call light and personal items within reach. Will continue to monitor.
[2019-02-07] MEDS: HYDROCODONE/APAP 10-325 MG TABLET PO PRN ×3 (02:08→19:43)
[2019-02-07] MEDS: OXYCODONE HCL 10 MG TAB.SR.12H PO SCH ×3 (06:17→22:10)
[2019-02-07 06:22] VITALS: BP 123/72
[2019-02-07 08:12] VITALS: BP 116/60
[2019-02-07] MEDS: SULFAMETH/TRIMETH 800/160 MG TABLET PO SCH ×2 (08:30→20:26)
[2019-02-07] MEDS: HYDROCODONE/APAP 5-325MG TABLET PO PRN (08:31)
--- NOTE | 2019-02-07 09:01 | NUR ---
Patient resting comfortably in bed at this time. Awake/alert x4. Pleasant. Complains of pain in left hip 11/15. Pain management will be provided. DVT pumps on. RA, saturating WNL. Safety measures implemented. Will continue to monitor throughout shift.
[2019-02-07 14:58] VITALS: BP 113/53
[2019-02-07 19:30] VITALS: BP 127/67
[2019-02-07] MEDS: ENOXAPARIN SODIUM 40 MG/0.4 ML DISP.SYRIN SQ SCH (20:30)
[2019-02-08] MEDS: HYDROCODONE/APAP 10-325 MG TABLET PO PRN ×2 (02:46→12:06)
--- NOTE | 2019-02-08 03:30 | NUR ---
Pt in stable condition, ambulates with min assist with the walker to the bathroom. No fever, no nausea, no vomiting and no shortness of breath. pain is well managed with [place] 10mg and scheduled OxyContin. Will continue to monitor
[2019-02-08] MEDS: OXYCODONE HCL 10 MG TAB.SR.12H PO SCH ×3 (06:22→21:15)
[2019-02-08 06:23] VITALS: BP 112/59
[2019-02-08 08:00] VITALS: BP 113/56
[2019-02-08] MEDS: HYDROCODONE/APAP 5-325MG TABLET PO PRN (08:09)
[2019-02-08] MEDS: SULFAMETH/TRIMETH 800/160 MG TABLET PO SCH ×2 (08:09→21:13)
[2019-02-08 16:57] VITALS: BP 104/55
--- NOTE | 2019-02-08 17:20 | NUR ---
PATIENT IS ALERT, ORIENTED X4, NO SOB,RESP EVEN NONLABORED,AMBULATING WITH FWW, SUPERVISION, NO DISTRESS NOTED. PATIENT REPORTED OPEN PUSTULE ON HER RIGHT BREAST, NO DISCHARGE NOTED, PATIENT DENIED PAIN, DRY SCAB NOTED, PATIENT STILL WOULD LIKE TO SEE SOMEONE WHO HAS SPECIALITY, WOUND CARE CONSULT IN PLACE, NEEDS ATTENDED.
[2019-02-08 20:52] VITALS: BP 134/58
[2019-02-08] MEDS: ENOXAPARIN SODIUM 40 MG/0.4 ML DISP.SYRIN SQ SCH (21:18)
[2019-02-09] MEDS: HYDROCODONE/APAP 10-325 MG TABLET PO PRN ×3 (00:38→18:31)
[2019-02-09 04:04] VITALS: BP 102/46
--- NOTE | 2019-02-09 05:10 | NUR ---
resting in bed alert and oriented x4 OOB to BR with walker under supervision. Pain meds given at scheduled times. Tolerated well No ill effects noted. Left hip incision healed. voiding well. Kept comfortable. VSS.
[2019-02-09] MEDS: OXYCODONE HCL 10 MG TAB.SR.12H PO SCH ×3 (05:26→21:07)
[2019-02-09 07:58] VITALS: BP 138/58
[2019-02-09] MEDS: SULFAMETH/TRIMETH 800/160 MG TABLET PO SCH ×2 (09:22→21:07)
--- NOTE | 2019-02-09 12:46 | NUR ---
WOUND CARE CONSULT: PT PRESENTS WITH DRY SCAB TO CHEST. NO DRAINAGE, TENDERNESS OR REDNESS NOTED. LEFT OPEN TO AIR. PT ALSO NOTED TO HAVE RASH WITH PEELING SKIN TO GROIN FOLDS, PERINUEM AND INNER BUTTOCKS, PRESENT ON ADMISSION. RECOMMENDATIONS MADE FOR SKIN CARE AND PROTECTION. DISCUSSED WITH NURSING STAFF. PT IS CONTINENT MOSTLY. WILL SEE PRN. [place]ITAR[place] IN AGREEMENT WITH PLAN OF CARE. Addendum: 02/09/19 at 1248 by ANTONY PRADHAN RN Amended: Links added.
[2019-02-09 15:43] VITALS: BP 117/61
[2019-02-09] MEDS: CLOTRIMAZOLE 1% CREAM 30 GM TUBE TOP SCH (16:51)
[2019-02-09 20:16] VITALS: BP 110/54
[2019-02-09] MEDS: ENOXAPARIN SODIUM 40 MG/0.4 ML DISP.SYRIN SQ SCH (21:14)
--- NOTE | 2019-02-09 21:57 | NUR ---
awake alert and oriented x4 OOB to the BR with walker under supervision. No acute distress noted. VSS. Needs attended. Voiding well. On pain management, given as scheduled. No ill effects noted. Will monitor patient.
[2019-02-10] MEDS: HYDROCODONE/APAP 5-325MG TABLET PO PRN ×4 (01:34→18:04)
[2019-02-10 04:10] VITALS: BP 117/56
[2019-02-10] MEDS: OXYCODONE HCL 10 MG TAB.SR.12H PO SCH ×3 (05:34→21:57)
[2019-02-10 07:30] VITALS: BP 108/51
[2019-02-10] MEDS: CLOTRIMAZOLE 1% CREAM 30 GM TUBE TOP SCH ×2 (09:36→16:46)
[2019-02-10] MEDS: SULFAMETH/TRIMETH 800/160 MG TABLET PO SCH ×2 (09:36→21:55)
--- NOTE | 2019-02-10 13:37 | NUR ---
Patient continue therapy for ambulation and ADL ability. Continue pain management routine and PRN. tolerated well. not in distress. will continue monitor
[2019-02-10 16:00] VITALS: BP 111/53
[2019-02-10 20:25] VITALS: BP 100/45
[2019-02-10] MEDS: ENOXAPARIN SODIUM 40 MG/0.4 ML DISP.SYRIN SQ SCH (21:55)
[2019-02-11] MEDS: HYDROCODONE/APAP 10-325 MG TABLET PO PRN ×3 (03:09→17:24)
[2019-02-11 04:58] VITALS: BP 129/53
[2019-02-11] MEDS: OXYCODONE HCL 10 MG TAB.SR.12H PO SCH ×3 (05:53→21:06)
--- NOTE | 2019-02-11 06:12 | NUR ---
Pt slept intermittently at night. No acute distress noted. Meds given as ordered. All needs attended to promptly. Safety measures maintained. Call light and personal items within reach. Will continue to monitor.
[2019-02-11 07:02] LABS: BASOPHILS % (AUTO) 1.4 % (0.0-2.0); EOSINOPHILS # (AUTO) 0.2 K/uL (0.0-0.7); EOSINOPHILS % (AUTO) 5.2 % (0.0-7.0); HEMATOCRIT 29.5 % (31.2-41.9); HEMOGLOBIN 9.9 g/dL (10.9-14.3); LYMPHOCYTES # (AUTO) 0.7 K/uL (20.0-40.0); LYMPHOCYTES % (AUTO) 23.3 % (20.5-51.5); MEAN CORPUSCULAR HEMOGLOBIN 30.2 uug (24.7-32.8); MEAN CORPUSCULAR HGB CONC 34 g/dL (32.3-35.6); MEAN CORPUSCULAR VOLUME 90.3 fL (75.5-95.3); MONOCYTES # (AUTO) 0.5 K/uL (2.0-10.0); MONOCYTES % (AUTO) 14.6 % (0.0-11.0); NEUTROPHILS # (AUTO) 1.7 K/uL (1.8-8.9); NEUTROPHILS % (AUTO) 55.5 % (38.5-71.5); PLATELET COUNT (AUTO) 177 K/uL (179-408); RED BLOOD CELL COUNT(AUTO) 3.27 MIL/uL (3.63-4.92); WHITE BLOOD COUNT (AUTO) 3.1 K/uL (3.8-11.8)
[2019-02-11 07:53] LABS: BILIRUBIN,TOTAL 0.4 mg/dL (0.2-1.0); CREATININE 1.1 mg/dL (0.6-1.3); MAGNESIUM 1.9 mg/dL (1.8-2.4); PHOSPHOROUS 4.5 mg/dL (2.5-4.9); POTASSIUM 4.2 mmol/L (3.5-5.1); TOTAL PROTEIN, SERUM 6.7 g/dL (6.4-8.2)
[2019-02-11 08:08] VITALS: BP 102/71
[2019-02-11] MEDS: CLOTRIMAZOLE 1% CREAM 30 GM TUBE TOP SCH ×2 (09:30→17:02)
--- NOTE | 2019-02-11 14:58 | NUR ---
Patient continue therapy with pain management prior to therapy. Continue therapy for ambulation and ADL ability. tolerated well. not in distress. will continue monitor
[2019-02-11 15:52] VITALS: BP 120/66
[2019-02-11] MEDS: ENOXAPARIN SODIUM 40 MG/0.4 ML DISP.SYRIN SQ SCH (21:05)
--- NOTE | 2019-02-11 21:20 | NUR ---
Received pt resting in bed and reading a book. AAO x4. No acute distress noted. C/o 11/15 left hip pain. Due meds including pain med given as ordered. Safety measures maintained. Call light and personal items within reach. Will continue to monitor.
[2019-02-11 22:24] VITALS: BP 99/54
[2019-02-12] MEDS: HYDROCODONE/APAP 10-325 MG TABLET PO PRN ×2 (00:40→08:53)
[2019-02-12] MEDS: OXYCODONE HCL 10 MG TAB.SR.12H PO SCH ×3 (05:01→22:01)
[2019-02-12 05:55] VITALS: BP 103/59
[2019-02-12 07:56] VITALS: BP 108/47
[2019-02-12] MEDS: FERROUS GLUCONATE 324 MG TABLET PO SCH (08:51)
[2019-02-12] MEDS: CLOTRIMAZOLE 1% CREAM 30 GM TUBE TOP SCH ×2 (08:52→17:33)
[2019-02-12 16:38] VITALS: BP 131/41
[2019-02-12] MEDS: HYDROCODONE/APAP 5-325MG TABLET PO PRN (18:31)
--- NOTE | 2019-02-12 18:31 | NUR ---
Patient A&O x 4. No acute distress. Vital signs taken and stable for patient. NO new change of condition noted. Due medications administered as ordered and scheduled. PRN pain medication of [place] 10/325 administered before PT and effective. Continued PT/OT services. All other needs attended. Safety measures in place, call light left at bed side and will continue with care.
--- NOTE | 2019-02-12 19:47 | NUR ---
Received patient in bed. AAO x4, sometimes forgetful. Not in acute distress or SOB. Able to make needs known. On room air. Complained of pain on her left hip, rated pain 6/10 in numeric scale. Fall prevention observed. Safety measures maintained. Bed in low and lock position, alarm on, side rails up x2 for safety. Call light and frequently used items within reach. Continue to monitor.
[2019-02-12] MEDS: ENOXAPARIN SODIUM 40 MG/0.4 ML DISP.SYRIN SQ SCH (20:42)
[2019-02-12 20:54] VITALS: BP 100/60
[2019-02-13] MEDS: HYDROCODONE/APAP 5-325MG TABLET PO PRN ×2 (02:37→12:01)
[2019-02-13] MEDS: OXYCODONE HCL 10 MG TAB.SR.12H PO SCH (05:05)
[2019-02-13 05:33] VITALS: BP 132/65
--- NOTE | 2019-02-13 06:36 | NUR ---
Patient was stable during the shift and has a good sleep last night. Not in acute distress or SOB. Able to make needs known. On room air. on air mattress. Complained of pain in her left hip, rated pain 6/10 in numeric scale, Oxycodone 10 mg given and was effective. All due medication given and well tolerated. Physical assessment done. All needs attended promptly. Fall prevention observed. Safety measures maintained. Bed in low and lock position, alarm on, side rails up x2 for safety. Call light and frequently used items within reach. Continue to monitor and will endorse to the oncoming nurse accordingly.
[2019-02-13 07:58] VITALS: BP 127/50
[2019-02-13] MEDS: CLOTRIMAZOLE 1% CREAM 30 GM TUBE TOP SCH (09:03)
[2019-02-13] MEDS: FERROUS GLUCONATE 324 MG TABLET PO SCH (09:03)
[2019-02-13] MEDS: HYDROCODONE/APAP 10-325 MG TABLET PO PRN (09:05)
--- NOTE | 2019-02-13 12:24 | NUR ---
DISCHARGE: Patient is alert and oriented x4, able to express needs. Breathing is even and unlabored. NO acute distress noted. Vital signs taken and stable for patient. PRN pain medication of [place] 10/325mg administered for pain during PT and effective. TMS signed by Dr. Santo and prescription given and faxed to patient's pharmacy. Discharge teaching provided to patient and daughter. patient and family verbalized understanding. Teaching materials provided for patient to take home. patient stated will follow up with PCP for further plan of care. Daughter also stated will follow up with Home Health once they at home. Patient took all belongings and signed paper work. Patient also took own inhaler. Photos taken of left hip surgical site intact, dry, and no swelling noted. Patient and family thanked for the care provided and assisted to parking lot by PT and left at 12:15pm.
--- NOTE | 2019-02-13 15:41 | NUR ---
Discharge: Patient's daughter picked up prescription for pain pill.
== END 2019-02-13 12:15 | disposition home health service (06) | DRG 560 ==
PROVIDERS: ADMIT Physical Medicine & Rehabilitation Pain Medicine; ATTEND Physical Medicine & Rehabilitation Pain Medicine
DX: S72.145D Nondisplaced intertrochanteric fracture of left femur, subsequent encounter for closed fracture with routine healing (principal); N39.0 Urinary tract infection, site not specified; D68.59 Other primary thrombophilia; W01.0XXD Fall on same level from slipping, tripping and stumbling without subsequent striking against object, subsequent encounter; D69.6 Thrombocytopenia, unspecified; H26.9 Unspecified cataract; I27.20 Pulmonary hypertension, unspecified; J45.909 Unspecified asthma, uncomplicated; M19.90 Unspecified osteoarthritis, unspecified site; M79.7 Fibromyalgia; Z96.659 Presence of unspecified artificial knee joint; B96.1 Klebsiella pneumoniae [K. pneumoniae] as the cause of diseases classified elsewhere; R53.1 Weakness; D63.8 Anemia in other chronic diseases classified elsewhere; G89.29 Other chronic pain; I45.10 Unspecified right bundle-branch block; M81.0 Age-related osteoporosis without current pathological fracture; R26.9 Unspecified abnormalities of gait and mobility; R39.15 Urgency of urination; Z88.8 Allergy status to other drugs, medicaments and biological substances; Z88.1 Allergy status to other antibiotic agents; Z88.0 Allergy status to penicillin; Z91.013 Allergy to seafood; Z91.018 Allergy to other foods
CPT/HCPCS: 36415; 73502; 73551; 83550; 83735; 84100; 85025; 87086; J1650; J3535